=== PATIENT | male | born 1990 | race Caucasian/White ===

== ENCOUNTER 2022-08-21 13:06 | Emergency (ER) | payer MEDICAID ==
[~2022-08-21] VITALS: Ht 185.4 cm; Wt 60.0 kg
[2022-08-21 13:10] VITALS: BP 126/83
== END 2022-08-21 16:42 | disposition left against medical advice (07) ==
LOC: ER 13:35
DX: Z53.21 Procedure and treatment not carried out due to patient leaving prior to being seen by health care provider (principal)